=== PATIENT | male | born 1960 | race Caucasian/White ===

== ENCOUNTER 2021-08-20 05:50 | Emergency (ER) | payer SELFPAY ==
[~2021-08-20] VITALS: Ht 182.9 cm; Wt 104.5 kg
[2021-08-20 05:51] VITALS: BP 161/98; PULSE 106; TEMP 98.5
--- NOTE | 2021-08-20 11:20 | NUR ---
brick kiln worker met with patient due to concerns of the patient being homeless and needing transportation to [facility]. Contact made with Leeanne who states that [facility] is full and are unable to accept the patient to do this. Woody Zhang contacted and he notifies me that the patient can come there for day services. Upon arrangements for the patient to [place] and transport is was noticed that the patient had left [place]. Leeanne from [facility] provided me with a phone number for the patients daughter Leida [phone], who lives in [place], [place]. Leida contacted and notified me that the patient has a hx of MH problems and that she, her brother and the patient's father have legal guardianship over the patient. Leida provided guardianship paperwork to me. Leida states that she, her brother and grandfather have been attempting to involuntary place the patient and that she has an appointment with a pilot manager this morning.
--- NOTE | 2021-08-20 15:13 | NUR ---
This SW filed APS report. Report number: [id number]
== END 2021-08-20 11:06 | disposition home or self-care (01) ==
LOC: COL.ER 05:50
DX: S90.512A Abrasion, left ankle, initial encounter (principal); S90.511A Abrasion, right ankle, initial encounter; F20.9 Schizophrenia, unspecified; X58.XXXA Exposure to other specified factors, initial encounter; Y93.01 Activity, walking, marching and hiking; Y92.481 Parking lot as the place of occurrence of the external cause

== ENCOUNTER 2021-08-30 22:57 | Emergency (ER) | payer SELFPAY ==
[~2021-08-30] VITALS: Ht 185.4 cm; Wt 95.5 kg
[2021-08-30 23:00] VITALS: BP 169/91; PULSE 95; TEMP 97.6
--- NOTE | 2021-08-31 15:10 | NUR ---
Patient was gone from the hospital upon older adult social work specialist's arrival. Patient has legal appointed Guardians/conservators and paperwork is in the electronic record. Worker collaborated with [facility] emergency services, Brennen, to make contact and attempt to have patient sign release of information for community care team to assess and attempt to assist with resources. On 08/20/21, older adult social work specialist filed an adult protective services report and spoke with patient's sister about their concerns that patient is in need of placement. Sister advised that she was meeting with their defense attorney to see what could be done about placement.
== END 2021-08-31 02:08 | disposition home or self-care (01) ==
LOC: COL.ER 22:57
DX: Z00.00 Encounter for general adult medical examination without abnormal findings (principal)